=== PATIENT | male | born 1960 | race Hispanic/Latino ===

== ENCOUNTER 2018-03-29 03:09 | Emergency (ER) | payer MEDICARE ==
[2018-03-29 03:28] VITALS: RESP 20; TEMP 98.5
[2018-03-29] MEDS ORDERED: Aspirin 325 mg EC Tablets PO STA (03:55)
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
[2018-03-29 04:15] LABS: BASO # 0.1 K/uL (0.0-0.2); BASO % 0.9 % (0.0-2.0); EOS # 0.2 K/uL (0.0-0.7); EOS % 2.2 % (0.0-4.0); HEMOGLOBIN 14.7 g/dL (12.0-18.0); LYMPH # 1.5 K/uL (1.0-4.3); LYMPH % 16.4 % (20.0-40.0); MEAN CELL VOLUME 93.5 fL (80.0-94.0); MEAN CORPUSCULAR HEMOGLOBIN 32.2 pg (27.0-31.0); MEAN CORPUSCULAR HGB CONC 34.4 g/dL (33.0-37.0); MONO # 0.8 K/uL (0.0-0.8); MONO % 8.5 % (0.0-10.0); NEUT # 6.6 K/uL (1.8-7.0); RBC 4.58 Mil/uL (4.40-5.90); RED CELL DISTRIBUTION WIDTH 13.7 % (11.5-14.5); WHITE BLOOD COUNT 9.2 K/uL (4.8-10.8)
[2018-03-29 04:40] LABS: ALB/GLOB RATIO 1.7 (1.0-2.1)
[2018-03-29 04:50] LABS: ALT/SGPT 36 U/L (21-72); AST/SGOT 29 U/L (17-59); BLOOD UREA NITROGEN 16 mg/dL (9-20); CALCIUM 9.3 mg/dl (8.6-10.4); GFR AFRICAN-AMERICAN > 60; GFR NON-AFRICAN AMERICAN > 60
[2018-03-29 05:02] LABS: B-TYPE NATRIURETIC PEPTIDE 1220 pg/mL (0-900)
[2018-03-29 05:20] LABS: INR 3.2
[2018-03-29 05:22] LABS: PROTHROMBIN TIME 35.4 SECONDS (9.7-12.2)
[2018-03-29 06:53] LABS: CK-MB 1.79 ng/mL (0.0-3.38); TROPONIN I 0.031 ng/mL (0.00-0.120)
[2018-03-29 07:18] VITALS: BP 108/59; PULSE 59; O2SAT 100
--- NOTE | 2018-03-29 09:50 | RAD ---
Date of service: 03/29/2018 PROCEDURE: CHEST RADIOGRAPH, 1 VIEW HISTORY: chest pain COMPARISON: None available. FINDINGS: LUNGS: Clear. PLEURA: No pneumothorax or pleural fluid seen. CARDIOVASCULAR: No radiographic findings to suggest acute or significant cardiovascular disease. Incidental Finding(s): Postoperative changes related to sternotomy. Position/ configuration of pacemaker device: Satisfactory. OSSEOUS STRUCTURES: No significant abnormalities. VISUALIZED UPPER ABDOMEN: Normal. OTHER FINDINGS: None. IMPRESSION: Cardiomegaly. No evidence of acute, significant cardiovascular disease. Concordant results with the preliminary interpretation rendered by the emergency department physician procedure.
== END 2018-03-29 07:18 | disposition home or self-care (01) ==
LOC: C.ER 03:09
DX: R07.89 Other chest pain (principal); F41.9 Anxiety disorder, unspecified